=== PATIENT | female | born 1980 | race African-American/Black ===

== ENCOUNTER 2017-07-12 18:24 | Emergency (ER) | payer OTHER ==
[~2017-07-12] VITALS: Ht 172.7 cm; Wt 104.3 kg
[~2017-07-12 18:24] MED LIST: ACIDOPHILUS1 EAC5 PO; CIPRO500 MG PO; COLACE100 MG PO; FLAGYL500 MG PO; HYDROCODONE-AP1 EAC6 PO; NOHOMEMEDICATIONS
[2017-07-12 18:29] VITALS: BP 144/97
[2017-07-12] MEDS ORDERED: UNICOMPLEX M TA1 TA1 PO (18:34)
== END 2017-07-12 19:55 | disposition home or self-care (01) ==
LOC: ER 18:24
DX: S01.81XA Laceration without foreign body of other part of head, initial encounter (principal); F17.210 Nicotine dependence, cigarettes, uncomplicated; V47.5XXA Car driver injured in collision with fixed or stationary object in traffic accident, initial encounter; Y93.89 Activity, other specified; Y92.89 Other specified places as the place of occurrence of the external cause; Y99.8 Other external cause status

== ENCOUNTER 2019-11-06 20:04 | Emergency (ER) | payer OTHER ==
[~2019-11-06] VITALS: Ht 172.7 cm; Wt 102.1 kg
[~2019-11-06 20:04] MED LIST changes: +UNICOMPLEX M TA1 TA1 PO
[2019-11-06 20:09] VITALS: BP 121/71
== END 2019-11-06 23:10 | disposition left against medical advice (07) ==
LOC: ER 20:04
DX: R22.42 Localized swelling, mass and lump, left lower limb (principal); Z53.21 Procedure and treatment not carried out due to patient leaving prior to being seen by health care provider